=== PATIENT | female | born 1995 | race Caucasian/White ===

== ENCOUNTER 2022-03-22 22:14 | Emergency (ER) | payer SELFPAY ==
[2022-03-22] MEDS: Sodium Chloride 0.9% 10 ML Syringe FLUSH PRN (22:57)
[2022-03-23] MEDS: Doxycycline 100 MG Cap PO ONE (00:20)
== END 2022-03-23 00:26 | disposition home or self-care (01) ==
LOC: JP.ED 22:14
DX: A69.20 Lyme disease, unspecified (principal); R20.0 Anesthesia of skin; R41.0 Disorientation, unspecified; R01.1 Cardiac murmur, unspecified; Z79.899 Other long term (current) drug therapy; Z86.16 Personal history of COVID-19
CPT/HCPCS: 70450; 80048; 85025; 85379; 85651; 86140; 86617; 86618; 93005; 99284; A9270; J3490